=== PATIENT | female | born 2000 | race African-American/Black ===

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

== ENCOUNTER 2021-01-11 00:14 | Emergency (ER) | payer OTHER ==
[2021-01-11 00:28] VITALS: TEMP 99.6; BMI 34.9
[2021-01-11] MEDS ORDERED: METOCLOPRAMIDE HCL INJECTION 10 MG/2 ML VIAL IVPUSH ONE (00:48)
[2021-01-11] MEDS ORDERED: MECLIZINE HCL 12.5 MG TABLET PO ONE (00:49)
[2021-01-11] MEDS ORDERED: SODIUM CHLORIDE 1,000 ML IV STA (00:50)
[2021-01-11] MEDS ORDERED: ONDANSETRON 4 MG/2 ML VIAL IVPUSH ONE (00:50)
[2021-01-11] MEDS ORDERED: METOCLOPRAMIDE HCL INJECTION 10 MG/2 ML VIAL ONE (01:02)
[2021-01-11] MEDS ORDERED: MECLIZINE HCL 12.5 MG TABLET ONE (01:03)
[2021-01-11 01:07] LABS: BASO % 0.4 % (0-2.0); EOS % 3.7 % (0-4.5); HEMATOCRIT 37.7 % (32.4-45.2); HEMOGLOBIN 12.7 GM/dL (10.7-15.3); LYMPH % 15.1 % (8-40); MCH 28.1 pg (25.7-33.7); MCHC 33.6 g/dl (32.0-36.0); MEAN CELL VOLUME 83.4 fl (80-96); MEAN PLT VOLUME 7.8 fl (7.5-11.1); MONO % 6.3 % (3.8-10.2); NEUT % 74.5 % (42.8-82.8); PLATELET COUNT 295 10^3/uL (134-434); RBC 4.52 M/mm3 (3.60-5.2); RDW 13.1 % (11.6-15.6); WHITE BLOOD COUNT 12.5 K/mm3 (4.0-10.0)
[2021-01-11] MEDS: ALBUTEROL SO4 2.5/IPRATROPIUM 0.5 INH SOL 3 ML VIAL.NEB. NEB SCH ×4 (01:14→02:00)
[2021-01-11] MEDS ORDERED: ONDANSETRON 4 MG/2 ML VIAL ONE (01:16)
[2021-01-11 01:26] LABS: CHLORIDE 106 mmol/L (98-107); SODIUM 140 mmol/L (136-145)
[2021-01-11 01:28] LABS: CALCIUM 9.2 mg/dL (8.5-10.1)
[2021-01-11 01:29] LABS: BLOOD UREA NITROGEN 9.4 mg/dL (7-18); CO2 24 mmol/L (21-32); GLUCOSE,RANDOM 86 mg/dL (74-106)
[2021-01-11 01:32] LABS: CREATININE 0.7 mg/dL (0.55-1.3); SGOT/AST 18 U/L (15-37); SGPT/ALT 15 U/L (13-61)
[2021-01-11 01:34] LABS: BILIRUBIN,TOTAL 0.5 mg/dL (0.2-1); TOT PROT 7.8 g/dl (6.4-8.2)
[2021-01-11 01:35] LABS: ALK PHOS 103 U/L (45-117); ANION GAP 10 MMOL/L (8-16)
[2021-01-11] MEDS ORDERED: AZITHROMYCIN 250 MG TABLET PO ONE (02:04)
[2021-01-11] MEDS ORDERED: AZITHROMYCIN 250 MG TABLET ONE (02:28)
[2021-01-11 02:58] VITALS: BP 134/82
[2021-01-11 03:29] VITALS: PULSE 95
== END 2021-01-11 03:57 | disposition home or self-care (01) ==
LOC: JER 00:14
PROC: 3E0F7GC Introduction of Other Therapeutic Substance into Respiratory Tract, Via Natural or Artificial Opening (ICD-10-PCS; principal; 2021-01-11)
PROC: 3E033NZ Introduction of Analgesics, Hypnotics, Sedatives into Peripheral Vein, Percutaneous Approach (ICD-10-PCS; 2021-01-11)
PROC: 3E033GC Introduction of Other Therapeutic Substance into Peripheral Vein, Percutaneous Approach (ICD-10-PCS; 2021-01-11)
PROC: 3E0337Z Introduction of Electrolytic and Water Balance Substance into Peripheral Vein, Percutaneous Approach (ICD-10-PCS; 2021-01-11)
DX: J06.9 Acute upper respiratory infection, unspecified (principal)
CPT/HCPCS: 36415; 70450-TC; 71045-TC-FY; 80053; 82550; 82553; 84484; 84703; 85025; 87804; 93005; 93010; 99284-25; C9803; U0003; U0005

== ENCOUNTER 2021-04-18 19:18 | Emergency (ER) | payer OTHER ==
[2021-04-18 20:47] VITALS: BP 128/79; PULSE 71; TEMP 98.3; BMI 33.3
[2021-04-18 22:28] LABS: BASO % 0.5 % (0-2.0); EOS % 3.8 % (0-4.5); HEMATOCRIT 38.1 % (32.4-45.2); HEMOGLOBIN 12.7 GM/dL (10.7-15.3); MCH 27.7 pg (25.7-33.7); MCHC 33.2 g/dl (32.0-36.0); MEAN CELL VOLUME 83.5 fl (80-96); MEAN PLT VOLUME 7.7 fl (7.5-11.1); MONO % 5.6 % (3.8-10.2); NEUT % 56.1 % (42.8-82.8); PLATELET COUNT 331 10^3/uL (134-434); RBC 4.56 M/mm3 (3.60-5.2); RDW 13.2 % (11.6-15.6); WHITE BLOOD COUNT 8.9 K/mm3 (4.0-10.0)
[2021-04-18 22:39] LABS: HCG,QUALITATIVE URINE Negative
[2021-04-18 22:40] LABS: EPI CELLS 20 /uL (0-25.1); HYALINE CASTS 1 /uL (0-3.1); URINE APPEARANCE CLEAR; URINE BACTERIA 419 /uL (0-1359); URINE BILIRUBIN NEGATIVE (NEGATIVE); URINE COLOR YELLOW; URINE GLUCOSE (UA) NEGATIVE (NEGATIVE); URINE KETONE NEGATIVE (NEGATIVE); URINE LEUK ESTERASE TRACE (NEGATIVE); URINE NITRITE NEGATIVE (NEGATIVE); URINE PROTEIN NEGATIVE (NEGATIVE); URINE RBC 6 /uL (0-23.9); URINE UROBILINOGEN 0.2 mg/dL (0.2-1.0); URINE WBC 34 /uL (0-25.8)
[2021-04-18 22:51] LABS: CALCIUM 9.4 mg/dL (8.5-10.1)
[2021-04-18 22:52] LABS: ALBUMIN 3.9 g/dl (3.4-5.0); BLOOD UREA NITROGEN 16.5 mg/dL (7-18)
[2021-04-18 22:55] LABS: CREATININE 0.7 mg/dL (0.55-1.3)
[2021-04-18 22:56] LABS: BILIRUBIN,TOTAL 0.3 mg/dL (0.2-1)
[2021-04-18 22:57] LABS: TOT PROT 7.6 g/dl (6.4-8.2)
[2021-04-18] MEDS ORDERED: ACETAMINOPHEN 500 MG TABLET (FP) PO ONE (23:36)
[2021-04-18 23:42] LABS: THROAT:GRP A STREP NOT DETECTED (NOTDETECTED)
[2021-04-18] MEDS ORDERED: ACETAMINOPHEN 500 MG TABLET (FP) ONE (23:43)
[2021-04-19 00:13] LABS: SARS COV-2 MOLECULAR Negative (Negative)
== END 2021-04-19 | disposition home or self-care (01) ==
LOC: JER 19:18
DX: R10.13 Epigastric pain (principal); R05.1 Acute cough; R09.81 Nasal congestion; R11.14 Bilious vomiting
CPT/HCPCS: 36415; 71046-TC-FY; 76705-TC; 80053; 81003; 83690; 84703; 85025; 87086; 87651; 99285-25; C9803; U0003; U0005

== ENCOUNTER 2021-05-31 19:42 | Emergency (ER) | payer OTHER ==
[2021-05-31 19:53] VITALS: BMI 33.3
[2021-05-31] MEDS ORDERED: ONDANSETRON 4 MG/2 ML VIAL IVPUSH ONE (21:24)
[2021-05-31] MEDS ORDERED: ONDANSETRON 4 MG/2 ML VIAL ONE (22:36)
[2021-05-31 23:00] LABS: BASO % 0.2 % (0-2.0); EOS % 3.3 % (0-4.5); HEMATOCRIT 39.1 % (32.4-45.2); HEMOGLOBIN 12.9 GM/dL (10.7-15.3); LYMPH % 22.5 % (8-40); MCHC 32.9 g/dl (32.0-36.0); MONO % 5.6 % (3.8-10.2); NEUT % 68.4 % (42.8-82.8); RDW 14.2 % (11.6-15.6)
[2021-05-31] MEDS ORDERED: SODIUM CHLORIDE 0.9% 500 ML INFUS.BAG IV ONE (23:08)
[2021-05-31 23:23] LABS: CALCIUM 9.8 mg/dL (8.5-10.1)
[2021-05-31 23:24] LABS: ALBUMIN 4.2 g/dl (3.4-5.0); BLOOD UREA NITROGEN 10.8 mg/dL (7-18)
[2021-05-31 23:27] LABS: CREATININE 0.6 mg/dL (0.55-1.3)
[2021-05-31 23:29] LABS: BILIRUBIN,TOTAL 0.4 mg/dL (0.2-1); TOT PROT 7.7 g/dl (6.4-8.2)
[2021-05-31 23:41] LABS: PLATELET COUNT 225 10^3/uL (134-434)
[2021-06-01 01:23] LABS: EPI CELLS 32 /uL (0-25.1); HYALINE CASTS 3 /uL (0-3.1); URINE APPEARANCE CLOUDY; URINE BACTERIA 893 /uL (0-1359); URINE BILIRUBIN NEGATIVE (NEGATIVE); URINE COLOR YELLOW; URINE GLUCOSE (UA) NEGATIVE (NEGATIVE); URINE KETONE 1+ (NEGATIVE); URINE LEUK ESTERASE 2+ (NEGATIVE); URINE NITRITE NEGATIVE (NEGATIVE); URINE PROTEIN NEGATIVE (NEGATIVE); URINE RBC 13 /uL (0-23.9); URINE WBC 175 /uL (0-25.8)
[2021-06-01 01:51] LABS: HCG,QUALITATIVE URINE Positive
[2021-06-01 01:55] VITALS: BP 106/64; PULSE 69; TEMP 97.5
== END 2021-06-01 02:24 | disposition home or self-care (01) ==
LOC: JER 19:42
PROC: 3E033GC Introduction of Other Therapeutic Substance into Peripheral Vein, Percutaneous Approach (ICD-10-PCS; principal; 2021-05-31)
DX: R11.10 Vomiting, unspecified (principal); N39.0 Urinary tract infection, site not specified
CPT/HCPCS: 36415; 80053; 81003; 83690; 84703; 85025; 99284-25; C9803; U0003; U0005

== ENCOUNTER 2021-12-14 17:28 | Emergency (ER) | payer OTHER ==
[2021-12-14 17:50] VITALS: BP 124/79; PULSE 89; RESP 20; TEMP 97.9; BMI 31.6
[2021-12-14 18:44] LABS: BASO % 0.6 % (0-2.0); EOS % 1.4 % (0-4.5); HEMATOCRIT 38.7 % (32.4-45.2); HEMOGLOBIN 13.3 GM/dL (10.7-15.3); MCH 29.8 pg (25.7-33.7); MCHC 34.4 g/dl (32.0-36.0); MEAN CELL VOLUME 86.5 fl (80-96); MEAN PLT VOLUME 7.8 fl (7.5-11.1); MONO % 8.2 % (3.8-10.2); NEUT % 68.8 % (42.8-82.8); PLATELET COUNT 294 10^3/uL (134-434); RBC 4.47 M/mm3 (3.60-5.2); RDW 13.4 % (11.6-15.6); WHITE BLOOD COUNT 9.3 K/mm3 (4.0-10.0)
[2021-12-14 19:04] LABS: INR 1.26 (0.83-1.09); PROTHROMBIN TIME (PATIENT) 14.5 SEC (9.7-13.0)
[2021-12-14 19:17] LABS: CALCIUM 9.6 mg/dL (8.5-10.1)
[2021-12-14 19:18] LABS: ALBUMIN 4.3 g/dl (3.4-5.0)
[2021-12-14 19:21] LABS: CREATININE 0.5 mg/dL (0.55-1.3)
[2021-12-14 19:23] LABS: BILIRUBIN,TOTAL 0.6 mg/dL (0.2-1); TOT PROT 8.2 g/dl (6.4-8.2)
[2021-12-14 20:09] LABS: EPI CELLS 30 /uL (0-25.1); HYALINE CASTS 30 /uL (0-3.1); URINE APPEARANCE CLOUDY; URINE BILIRUBIN 1+ (NEGATIVE); URINE COLOR DK YELLOW; URINE GLUCOSE (UA) NEGATIVE (NEGATIVE); URINE KETONE 3+ (NEGATIVE); URINE LEUK ESTERASE 2+ (NEGATIVE); URINE NITRITE NEGATIVE (NEGATIVE); URINE PROTEIN 1+ (NEGATIVE); URINE RBC 8 /uL (0-23.9); URINE WBC 266 /uL (0-25.8)
[2021-12-14 20:10] LABS: HCG,QUALITATIVE URINE Positive
[2021-12-14 21:19] LABS: URINE BACTERIA 381 /uL (0-1359)
== END 2021-12-14 22:00 | disposition home or self-care (01) ==
LOC: JER 17:28
DX: O20.8 Other hemorrhage in early pregnancy (principal)
CPT/HCPCS: 36415; 76817-TC; 80053; 81003; 84702; 84703; 85025; 85610; 86850; 86900; 86901; 87086; 87491; 87591; 99284-25

== ENCOUNTER 2022-03-01 17:32 | Emergency (ER) | payer OTHER ==
[2022-03-01 17:41] VITALS: BP 107/65; PULSE 80; RESP 18; TEMP 98; BMI 28.3
== END 2022-03-01 18:54 | disposition home or self-care (01) ==
LOC: JER 17:32
DX: O26.892 Other specified pregnancy related conditions, second trimester (principal); M54.50 Low back pain, unspecified; Z3A.18 18 weeks gestation of pregnancy
CPT/HCPCS: 99283-25

== ENCOUNTER 2022-06-26 19:27 | Observation (INO) | payer OTHER ==
[2022-06-26] MEDS ORDERED: ELECTROLYTE-148 SOLN 500 ML IV ONE (20:00)
[2022-06-26 20:46] VITALS: BP 112/62; PULSE 102; RESP 18; TEMP 97.4
[2022-06-26 23:11] VITALS: BMI 36.1
== END 2022-06-26 23:57 | disposition home or self-care (01) ==
LOC: JDEL 19:27 → INTOOBSV 21:53 → JLDR 21:53
PROVIDERS: ADMIT Obstetrics & Gynecology; ATTEND Obstetrics & Gynecology
PROC: 3E0337Z Introduction of Electrolytic and Water Balance Substance into Peripheral Vein, Percutaneous Approach (ICD-10-PCS; principal; 2022-06-26)
DX: O47.03 False labor before 37 completed weeks of gestation, third trimester (principal); Z3A.35 35 weeks gestation of pregnancy; J45.909 Unspecified asthma, uncomplicated
CPT/HCPCS: 96360; G0378

== ENCOUNTER 2022-07-15 15:05 | Inpatient (IN) | payer OTHER ==
[2022-07-15] MEDS ORDERED: ELECTROLYTE-148 SOLN 1,000 ML IV SCH ×2 (15:35→16:45)
[2022-07-15 16:10] VITALS: BMI 36.6
[2022-07-15 16:24] LABS: BASO % 0.3 % (0-2.0); EOS % 1.4 % (0-4.5); HEMATOCRIT 35.2 % (32.4-45.2); HEMOGLOBIN 11.5 GM/dL (10.7-15.3); LYMPH % 14.8 % (8-40); MCH 28.3 pg (25.7-33.7); MCHC 32.8 g/dl (32.0-36.0); MEAN CELL VOLUME 86.3 fl (80-96); MEAN PLT VOLUME 8.6 fl (7.5-11.1); MONO % 9.1 % (3.8-10.2); NEUT % 74.4 % (42.8-82.8); PLATELET COUNT 206 10^3/uL (134-434); RBC 4.08 M/mm3 (3.60-5.2); RDW 13.2 % (11.6-15.6); WHITE BLOOD COUNT 11.5 K/mm3 (4.0-10.0)
[2022-07-15 16:30] LABS: INR 0.98 (0.83-1.09); PROTHROMBIN TIME (PATIENT) 11.4 SEC (9.7-13.0)
[2022-07-15 16:33] LABS: ACTIVATED PTT 30.2 SECONDS (25.2-36.5)
[2022-07-15] MEDS ORDERED: PROMETHAZINE HCL 25 MG/1 ML VIAL IVPB ONE (16:38)
[2022-07-15] MEDS ORDERED: BUTORPHANOL TARTRATE 1 MG/ML VIAL IVPB PRN (16:38)
[2022-07-15 16:42] LABS: BLOOD UREA NITROGEN 6.9 mg/dL (7-18); CALCIUM 9.1 mg/dL (8.5-10.1)
[2022-07-15] MEDS ORDERED: AMPICILLIN - 2 GM in SODIUM CHLORIDE 100 ML IVPB ONE (16:45)
[2022-07-15 16:46] LABS: CREATININE 0.4 mg/dL (0.55-1.3)
[2022-07-15] MEDS ORDERED: AMPICILLIN SODIUM 2 GM VIAL ONE (16:47)
[2022-07-15] MEDS ORDERED: FENTANYL/BUPIVACAINE/NS/PF - PCEA - 50 ML DISP.SYRIN EP ONE (17:28)
[2022-07-15] MEDS ORDERED: NALOXONE HCL 0.4 MG/ML VIAL IVPUSH PRN (17:28)
[2022-07-15] MEDS ORDERED: FENTANYL/BUPIVACAINE/NS/PF - PCEA - 50 ML DISP.SYRIN EP SCH (17:30)
[2022-07-15] MEDS ORDERED: BUPIVACAINE HCL/PF 0.25% (2.5MG/ML) 10 ML VIAL ONE (17:37)
[2022-07-15] MEDS ORDERED: FENTANYL CITRATE/PF 50 MCG/ML VIAL ONE (17:37)
[2022-07-15] MEDS ORDERED: LIDO 2%/EPI 1:200000 PRESRVFRE (20 ML SDVIAL) ONE (17:39)
[2022-07-15] MEDS ORDERED: OXYTOCIN 20 UNITS in 0.9% NS 20 UNIT/1,000 ML INFUS.BAG IV ONE (18:23)
[2022-07-15] MEDS ORDERED: BENZOCAINE 20% 57 GM BOTTLE TP PRN (18:57)
[2022-07-15] MEDS ORDERED: BENZOCAINE 28 GM HEMORRHOIDAL OINTMENT TP PRN (18:57)
[2022-07-15] MEDS ORDERED: WITCH HAZEL 50% (TUCKS) 40 PAD/JAR PAD TP PRN (18:57)
[2022-07-15] MEDS ORDERED: BISACODYL 10 MG SUPP.RECT RC PRN (18:57)
[2022-07-15] MEDS ORDERED: oxyCODONE HCL 5 MG TABLET PO PRN (18:57)
[2022-07-15] MEDS ORDERED: METHYLERGONOVINE MALEATE 0.2 MG/1 ML AMP IM PRN (18:57)
[2022-07-15] MEDS ORDERED: ACETAMINOPHEN 325 MG TABLET (FP) PO PRN (18:57)
[2022-07-15] MEDS ORDERED: OXYTOCIN 20 UNITS in 0.9% NS 20 UNIT/1,000 ML INFUS.BAG IV SCH (19:00)
[2022-07-15 19:22] LABS: CORD BASE EXCESS -0.3 mmol/L (0-2); CORD HCO3 27.3 mmHg (20-29); CORD PCO2 58.3 mmHg (30-78); CORD pH 7.289 (7.14-7.44)
[2022-07-15 19:26] LABS: CORD BASE EXCESS -2.8 mmol/L (0-2); CORD HCO3 22.1 mmHg (20-29); CORD PCO2 38.7 mmHg (30-78); CORD pH 7.374 (7.14-7.44)
[2022-07-15] MEDS ORDERED: AMPICILLIN - 1 GM in SODIUM CHLORIDE 100 ML IVPB SCH (20:45)
[2022-07-15 22:22] VITALS: RESP 16
[2022-07-16] MEDS: IBUPROFEN 600 MG TABLET (FP) PO PRN ×4 (00:38→19:59)
[2022-07-16] MEDS: PRENATAL VITAMINS W/ FOLIC ACID TABLET (FP) PO SCH (09:50)
[2022-07-16] MEDS: FERROUS SO4 325 MG TABLET (FP) PO SCH ×3 (09:50→17:21)
[2022-07-16 10:15] LABS: BASO % 0.3 % (0-2.0); EOS % 1.1 % (0-4.5); HEMATOCRIT 29.4 % (32.4-45.2); LYMPH % 15.2 % (8-40); MCH 29.2 pg (25.7-33.7); MEAN CELL VOLUME 85.8 fl (80-96); MEAN PLT VOLUME 8.3 fl (7.5-11.1); MONO % 10.7 % (3.8-10.2); NEUT % 72.7 % (42.8-82.8); PLATELET COUNT 178 10^3/uL (134-434); RBC 3.43 M/mm3 (3.60-5.2); RDW 13.3 % (11.6-15.6); WHITE BLOOD COUNT 10.8 K/mm3 (4.0-10.0)
[2022-07-16] MEDS ORDERED: SENNOSIDES/DOCUSATE COMBO (SENNA PLUS) TABLET (UD) PO PRN (22:00)
[2022-07-17] MEDS: FERROUS SO4 325 MG TABLET (FP) PO SCH ×2 (08:51→11:59)
[2022-07-17] MEDS: PRENATAL VITAMINS W/ FOLIC ACID TABLET (FP) PO SCH (09:41)
[2022-07-17] MEDS: IBUPROFEN 600 MG TABLET (FP) PO PRN (09:42)
[2022-07-17 10:40] VITALS: BP 118/77; PULSE 74; TEMP 98
== END 2022-07-17 13:14 | disposition home or self-care (01) | DRG 560 ==
LOC: JDEL 15:05 → JLDR 15:35 → J3W 21:45
PROVIDERS: ADMIT Obstetrics & Gynecology; ATTEND Obstetrics & Gynecology
PROC: 10E0XZZ Delivery of Products of Conception, External Approach (ICD-10-PCS; principal; 2022-07-15)
DX: O70.0 First degree perineal laceration during delivery (principal); O99.824 Streptococcus B carrier state complicating childbirth; O69.81X0 Labor and delivery complicated by cord around neck, without compression, not applicable or unspecified; O99.214 Obesity complicating childbirth; E66.9 Obesity, unspecified; Z3A.38 38 weeks gestation of pregnancy; Z37.0 Single live birth
CPT/HCPCS: 36415; 36600; 59025; 59409; 80048; 82803; 85025; 85610; 85730; 86780; 86850; 86900; 86901; C9803-CS; U0003; U0005

== ENCOUNTER 2022-10-28 02:03 | Emergency (ER) | payer OTHER ==
[2022-10-28 02:15] VITALS: BP 115/75; PULSE 79; RESP 18; TEMP 97.7; BMI 33.3
[2022-10-28] MEDS ORDERED: DEXAMETHASONE SOD PHOSPHATE 10 MG/1 ML VIAL IM ONE (03:12)
[2022-10-28] MEDS ORDERED: ACETAMINOPHEN 500 MG TABLET (FP) PO ONE (03:14)
[2022-10-28] MEDS ORDERED: ACETAMINOPHEN 325 MG TABLET (FP) ONE (03:30)
[2022-10-28] MEDS ORDERED: DEXAMETHASONE SOD PHOSPHATE 10 MG/1 ML VIAL ONE (03:30)
[2022-10-28] MEDS ORDERED: ERYTHROMYCIN 0.5% OPHTHALMIC OINTMENT 3.5 GM TUBE OU STA (03:32)
[2022-10-28] MEDS ORDERED: KETOROLAC TROMETHAMINE 15 MG/ML VIAL IM ONE (03:37)
[2022-10-28] MEDS ORDERED: KETOROLAC TROMETHAMINE 30 MG/1 ML VIAL ONE (04:06)
== END 2022-10-28 04:44 | disposition home or self-care (01) ==
LOC: JER 02:03
PROC: 3E023GC Introduction of Other Therapeutic Substance into Muscle, Percutaneous Approach (ICD-10-PCS; principal; 2022-10-28)
PROC: 3E0233Z Introduction of Anti-inflammatory into Muscle, Percutaneous Approach (ICD-10-PCS; 2022-10-28)
DX: R07.0 Pain in throat (principal); H10.9 Unspecified conjunctivitis; B96.89 Other specified bacterial agents as the cause of diseases classified elsewhere; H04.202 Unspecified epiphora, left side; H53.8 Other visual disturbances; H57.12 Ocular pain, left eye; Z20.822 Contact with and (suspected) exposure to COVID-19
CPT/HCPCS: 0241U-QW; 87651; 99284-25; J1100

== ENCOUNTER 2023-01-11 11:37 | Emergency (ER) | payer OTHER ==
[2023-01-11 11:41] VITALS: BP 121/73; PULSE 99; RESP 18; TEMP 98.7; BMI 33.3
[2023-01-11] MEDS ORDERED: KETOROLAC TROMETHAMINE 30 MG/1 ML VIAL IM ONE (15:35)
[2023-01-11] MEDS ORDERED: SULFAMETHOXAZOLE/TRIMETHOPRIM 800MG/160MG D.S. TABLET PO ONE (15:35)
[2023-01-11] MEDS ORDERED: SULFAMETHOXAZOLE/TRIMETHOPRIM 800MG/160MG D.S. TABLET ONE (15:50)
[2023-01-11] MEDS ORDERED: KETOROLAC TROMETHAMINE 30 MG/1 ML VIAL ONE (15:50)
== END 2023-01-11 16:06 | disposition home or self-care (01) ==
LOC: JERFT 11:37
PROC: 3E0233Z Introduction of Anti-inflammatory into Muscle, Percutaneous Approach (ICD-10-PCS; principal; 2023-01-11)
DX: L02.31 Cutaneous abscess of buttock (principal); L03.317 Cellulitis of buttock
CPT/HCPCS: 99284-25